=== PATIENT | male | born 1960 | race Two or more races ===

== ENCOUNTER 2018-01-24 08:22 | Outpatient (CLI) | payer OTHER ==
[~2018-01-24 08:22] MED LIST: INTESTINEX1 CA1 PO
== END 2018-01-24 08:26 | disposition home or self-care (01) ==
LOC: RAD 08:22
DX: R07.81 Pleurodynia (principal)

== ENCOUNTER 2018-03-14 11:21 | Emergency (ER) | payer OTHER ==
[~2018-03-14] VITALS: Ht 167.6 cm; Wt 81.6 kg
[2018-03-14] MEDS ORDERED: COZAAR100 MG (12:06)
[2018-03-14] MEDS ORDERED: INTELENCE200 MG (12:07)
[2018-03-14] MEDS ORDERED: PREZISTA800 MG (12:07)
[2018-03-14] MEDS ORDERED: NORVIR100 M1 (12:07)
== END 2018-03-14 14:53 | disposition home or self-care (01) ==
LOC: ER 11:21
DX: B34.9 Viral infection, unspecified (principal); R10.32 Left lower quadrant pain

== ENCOUNTER 2018-08-13 08:47 | Emergency (ER) | payer OTHER ==
[~2018-08-13] VITALS: Ht 167.6 cm; Wt 81.6 kg
[~2018-08-13 08:47] MED LIST changes: +COZAAR100 MG; +INTELENCE200 MG; +NORVIR100 M1; +PREZISTA800 MG
== END 2018-08-13 14:20 | disposition home or self-care (01) ==
LOC: ER 08:47
DX: R42 Dizziness and giddiness (principal); R19.7 Diarrhea, unspecified; R10.84 Generalized abdominal pain

== ENCOUNTER 2018-12-06 08:42 | Outpatient (CLI) | payer OTHER | END 2018-12-06 08:46 | disposition home or self-care (01) | LOC: TOM 08:42 | DX: K57.30 Diverticulosis of large intestine without perforation or abscess without bleeding (principal); Z86.010 Personal history of colon polyps; R10.32 Left lower quadrant pain; M25.561 Pain in right knee ==

== ENCOUNTER 2020-03-15 23:24 | Emergency (ER) | payer OTHER ==
[~2020-03-15] VITALS: Ht 167.6 cm; Wt 83.9 kg
[2020-03-15] MEDS ORDERED: CRESTOR40 MG (23:32)
[2020-03-16] MEDS ORDERED: CLOTRIMAZOLE10 MG MM (02:37)
== END 2020-03-16 02:50 ==
LOC: ER 23:24
DX: R07.89 Other chest pain (principal)

== ENCOUNTER 2021-01-12 17:22 | Emergency (ER) | payer OTHER ==
[~2021-01-12] VITALS: Ht 167.6 cm; Wt 77.1 kg
[~2021-01-12 17:22] MED LIST changes: +CLOTRIMAZOLE10 MG MM; +CRESTOR40 MG
[2021-01-12] MEDS ORDERED: CRESTOR20 MG (17:46)
== END 2021-01-12 21:17 | disposition home or self-care (01) ==
LOC: ER 17:22
DX: R53.81 Other malaise (principal); Z92.29 Personal history of other drug therapy; I10 Essential (primary) hypertension; Z03.818 Encounter for observation for suspected exposure to other biological agents ruled out; B20 Human immunodeficiency virus [HIV] disease

== ENCOUNTER 2023-11-02 12:41 | Emergency (ER) | payer OTHER ==
[~2023-11-02] VITALS: Ht 167.6 cm; Wt 81.6 kg
[~2023-11-02 12:41] MED LIST changes: +CRESTOR20 MG
[2023-11-02] MEDS ORDERED: TIVICAY50 MG (12:47)
[2023-11-02] MEDS ORDERED: SYMTUZA 800-151 EACH (12:47)
[2023-11-02] MEDS ORDERED: CEFTRIAXONE SODIUM 1,000 MG VIAL IM STA (14:09)
[2023-11-02] MEDS ORDERED: DEXAMETHASONE 4 MG TABLET PO STA (14:10)
[2023-11-02] MEDS ORDERED: ORPHENADRINE CITRATE 30 MG/ML AMPUL IM STA (14:10)
[2023-11-02] MEDS ORDERED: ORPHENADRINE CITRATE 30 MG/ML AMPUL ONE (14:40)
[2023-11-02] MEDS ORDERED: LIDOCAINE HCL 1% 10ML VIAL ONE (14:41)
[2023-11-02] MEDS ORDERED: CEFTRIAXONE SODIUM 1,000 MG VIAL ONE (14:41)
[2023-11-02] MEDS ORDERED: DEXAMETHASONE SODIUM PHOSPHATE 4 MG/ML VIAL ONE (14:41)
[2023-11-02 15:05] LABS: HEMATOCRIT 38.5 % (39.0-48.0); HEMOGLOBIN 13.2 g/dL (13-16.00); MEAN CELL VOLUME 82.8 fL (80.0-100.00); MEAN CORPUSCULAR HEMOGLOBIN 28.5 pg (27.00-32.0); MEAN CORPUSCULAR HGB CONC 34.4 g/dl (32.0-36.0); PLATELET COUNT 185 K/uL (150-450); RED BLOOD COUNT 4.65 M/uL (4.00-6.00); RED CELL DISTRIBUTION WIDTH 13.7 % (11.5-14.5)
== END 2023-11-02 17:12 | disposition home or self-care (01) ==
LOC: ER 12:43
DX: N39.0 Urinary tract infection, site not specified (principal)
CPT/HCPCS: 36415; 96372; 99282; J0696; J2360

== ENCOUNTER 2023-11-13 13:34 | Outpatient (CLI) | payer OTHER ==
[~2023-11-13 13:34] MED LIST changes: +SYMTUZA 800-151 EACH; +TIVICAY50 MG
== END 2023-11-13 13:35 | disposition home or self-care (01) ==
LOC: NUCLEAR 13:34
DX: Z13.820 Encounter for screening for osteoporosis (principal); M81.0 Age-related osteoporosis without current pathological fracture